=== PATIENT | male | born 1950 | race Caucasian/White ===

== ENCOUNTER 2017-06-19 01:55 | Emergency (ER) | payer OTHER ==
[~2017-06-19] VITALS: Ht 185.4 cm; Wt 105.0 kg
[2017-06-19 02:09] VITALS: BP 118/73; PULSE 48; RESP 16; TEMP 97.6; O2SAT 98
[2017-06-19] MEDS ORDERED: ATOR10TA15 PO (02:09)
[2017-06-19] MEDS ORDERED: ASPI1CHW4 CHEW (02:09)
[2017-06-19] MEDS ORDERED: METO25TA3 PO (02:09)
[2017-06-19] MEDS ORDERED: ENAL5TAB PO (02:09)
[2017-06-19] MEDS ORDERED: SODIUM CHLORIDE 0.9% FLUSH 10 ML FLUSH IVF PRN (02:45)
[2017-06-19] MEDS ORDERED: SODIUM CHLORID 0.9% 500 ML INJ 500 ML IV ONE (02:45)
[2017-06-19 02:47] LABS: AUTOMATED NEUTROPHIL # 4.3 TH/MM3 (1.8-7.7); BASOPHIL # 0.1 TH/MM3 (0-0.2); BASOPHIL % 0.7 % (0.0-2.0); EOSINOPHIL # 0.3 TH/MM3 (0-0.4); EOSINOPHIL % 3.6 % (0.0-4.0); HEMATOCRIT 42.6 % (39.0-51.0); HEMOGLOBIN 14.8 GM/DL (13.0-17.0); LYMPH % 35.3 % (9.0-44.0); LYMPHOCYTE # 2.9 TH/MM3 (1.0-4.8); MEAN CELL VOLUME 97.9 FL (80.0-100.0); MEAN CORPUSCULAR HEMOGLOBIN 34.1 PG (27.0-34.0); MEAN CORPUSCULAR HGB CONC 34.8 % (32.0-36.0); MEAN PLATELET VOLUME 10.6 FL (7.0-11.0); MONO % 8.5 % (0.0-8.0); MONOCYTE # 0.7 TH/MM3 (0-0.9); NEUT % 51.9 % (16.0-70.0); PLATELET COUNT 134 TH/MM3 (150-450); RED BLOOD COUNT 4.35 MIL/MM3 (4.50-5.90); RED CELL DISTRIBUTION WIDTH 12.6 % (11.6-17.2); WHITE BLOOD COUNT 8.2 TH/MM3 (4.0-11.0)
--- NOTE | 2017-06-19 02:57 | RADRPT ---
EXAM DATE/TIME: 06/19/2017 02:43 [facility] COMPARISON: No previous studies available for comparison. INDICATIONS : Trauma, fall. Syncopal episode. RADIATION DOSE: 66.34 CTDIvol (mGy) MEDICAL HISTORY : Hypertension. SURGICAL HISTORY : None. ENCOUNTER: Initial ACUITY: 1 day PAIN SCALE: 0/10 LOCATION: cranial TECHNIQUE: Multiple contiguous axial images were obtained of the head. Using automated exposure control and adj ustment of the mA and/or kV according to patient size, radiation dose was kept as low as reasonably a chievable to obtain optimal diagnostic quality images. DICOM format image data is available electro nically for review and comparison. FINDINGS: CEREBRUM: The ventricles are normal for age. No evidence of midline shift, mass lesion, hemorrhage or acute in farction. No extra-axial fluid collections are seen. POSTERIOR FOSSA: The cerebellum and brainstem are intact. The 4th ventricle is midline. The cerebellopontine angle i s unremarkable. EXTRACRANIAL: The visualized portion of the orbits is intact. Small retention cyst in the inferior aspect of the ma xillary antra SKULL: The calvaria is intact. No evidence of skull fracture. CONCLUSION: 1. Mild sinus disease in the inferior aspect of the right maxillary antra. 2. Otherwise negative. No acute intracranial process, trauma or fracture Patrice Rosas MD on June 19, 2017 at 2:55 Board Certified Radiologist. This report was verified electronically.
[2017-06-19 03:04] LABS: INTERNATIONAL NORMALIZED RATIO 1.1 RATIO
[2017-06-19 03:11] LABS: ALBUMIN 4.4 GM/DL (3.4-5.0); ALT (GPT) 32 U/L (12-78); AST (GOT) 29 U/L (15-37); BICARBONATE 24.9 MEQ/L (21.0-32.0); BLOOD UREA NITROGEN 29 MG/DL (7-18); CALCIUM 8.8 MG/DL (8.5-10.1); CHLORIDE 104 MEQ/L (98-107); CREATININE 1.47 MG/DL (0.60-1.30); GLOMERULAR FILTRATION RATE 48 ML/MIN (>89); GLUCOSE,RANDOM 100 MG/DL (74-106); SODIUM (NA) 139 MEQ/L (136-145)
--- NOTE | 2017-06-19 03:11 | RADRPT ---
EXAM DATE/TIME: 06/19/2017 02:43 [facility] COMPARISON: No previous studies available for comparison. INDICATIONS : Trauma, fall. RADIATION DOSE: 22.34 CTDIvol (mGy) MEDICAL HISTORY : Hypertension. SURGICAL HISTORY : None. ENCOUNTER: Initial ACUITY: 1 day PAIN SCALE: 0/10 LOCATION: neck TECHNIQUE: Volumetric scanning of the cervical spine was performed. Multiplanar reconstructions in the sagittal, coronal and oblique axial planes were performed. Using automated exposure control and adjustment o f the mA and/or kV according to patient size, radiation dose was kept as low as reasonably achievable to obtain optimal diagnostic quality images. DICOM format image data is available electronically f or review and comparison. FINDINGS: Sagittal and coronal reconstructions show mild multilevel degenerative disc disease, most severe at C 4-5 with loss of disc height and associated uncovertebral ridging. Minimal encroachment on the anteri or epidural space the spinal canal appears be adequate throughout. Vertebral body heights are maintai nathaniel without fracture or listhesis. C2-C3: The bony spinal canal is normal in size. No evidence of disc bulge or herniation. The neural forami na are bilaterally patent. C3-C4: The bony spinal canal is normal in size. No evidence of disc bulge or herniation. The neural forami na are bilaterally patent. C4-C5: Uncovertebral ridging encroaches on the intervertebral space of the left neural foramina. Spinal jessica l and neural foramina remain adequate, however. C5-C6: The bony spinal canal is normal in size. No evidence of disc bulge or herniation. The neural forami na are bilaterally patent. C6-C7: The bony spinal canal is normal in size. No evidence of disc bulge or herniation. The neural forami na are bilaterally patent. C7-T1: The bony spinal canal is normal in size. No evidence of disc bulge or herniation. The neural forami na are bilaterally patent. CONCLUSION: 1. Mild degenerative disc disease from C3-4 through C5-6 most severe at the C4-5 level. 2. Uncovertebral ridging at C4-5 encroaches on the intercostal space in the left neural foramina but the spinal canal and neural foramina appear to be adequate at this and all remaining levels. 3. No fracture or listhesis. Patrice Rosas MD on June 19, 2017 at 3:07 Board Certified Radiologist. This report was verified electronically.
[2017-06-19 03:15] LABS: ALKALINE PHOSPHATASE 61 U/L (45-117); TOTAL PROTEIN 7.4 GM/DL (6.4-8.2); TROPONIN I LESS THAN 0.02 NG/ML (0.02-0.05)
--- NOTE | 2017-06-19 03:17 | RADRPT ---
EXAM DATE/TIME: 06/19/2017 02:53 [facility] COMPARISON: No previous studies available for comparison. INDICATIONS : Palpitations MEDICAL HISTORY : Hypertension. SURGICAL HISTORY : None. ENCOUNTER: Initial ACUITY: 1 day PAIN SCORE: 0/10 LOCATION: Bilateral chest FINDINGS: A single view of the chest demonstrates the lungs to be symmetrically aerated without evidence of mas s, infiltrate or effusion. Heart size is borderline prominent a well compensated. Osseous structures are intact. CONCLUSION: 1. Heart size is borderline prominent but well compensated. 2. Lungs are clear Patrice Rosas MD on June 19, 2017 at 3:15 Board Certified Radiologist. This report was verified electronically.
[2017-06-19 04:17] VITALS: BP 126/60
--- NOTE | 2017-06-19 04:21 | PD ---
HPI Chief Complaint: Syncope/Near-Syncope Time Seen by Provider: 02:11 Travel History International Travel<30 days: No Contact w/Intl Traveler<30days: No Traveled to known affect area: No History of Present Illness HPI Patient is a 66-year-old male who comes in after he syncopized while visiting his stepson in the ICU. He reports being under a lot of stress as he recently moved down here and was supposed to get tomorrow until his steps and was in a bad accident and this had to be in the ICU here. He says he has not slept in a few days he is not eating and drinking well. He says that he was standing there and became dizzy and then all of a sudden passed out. Says he is feeling better now. He denies ever having any chest pain or shortness of breath. He says this is never happened before. He denies fever chills. Severity is mild to moderate. PFSH Past Medical History Atrial Fibrillation: Yes High Cholesterol: Yes Hypertension: Yes Tetanus Vaccination: Unknown Influenza Vaccination: No Social History Alcohol Use: Yes (WEEKLY) Tobacco Use: No Substance Use: No Allergies-Medications (Allergen,Severity, Reaction): Coded Allergies: No Known Allergies (Unverified , 06/19/17) Reported Meds & Prescriptions Reported Meds & Active Scripts Active Reported Aspirin 81 Low Dose (Aspirin) 81 Mg Chew 81 Mg CHEW DAILY Metoprolol Tartrate 25 Mg Tab Unknown Dose PO DAILY Atorvastatin (Atorvastatin Calcium) 10 Mg Tab 10 Mg PO HS Enalapril (Enalapril Maleate) 5 Mg Tab 5 Mg PO DAILY Review of Systems Except as stated in HPI: all other systems reviewed are Neg General / Constitutional: No: Fever, Chills Eyes: No: Blurred Vision HENT: No: Headaches Cardiovascular: No: Chest Pain or Discomfort, Palpitations Respiratory: No: Shortness of Breath Gastrointestinal: No: Nausea, Vomiting Skin: No Change in Pigmentation Neurologic: Positive: Syncope Physical Exam Narrative GENERAL: Awake and alert, no acute distress. SKIN: Focused skin assessment warm/dry. No wounds or signs of infection. HEAD: Atraumatic. Normocephalic. EYES: Pupils equal and round. No scleral icterus. Extraocular movements intact. ENT: Mucous membranes pink and moist. NECK: Trachea midline. No JVD. No cervical spine tenderness. CARDIOVASCULAR: Regular rate and rhythm. No murmur appreciated. RESPIRATORY: No accessory muscle use. Clear to auscultation. Breath sounds equal bilaterally. GASTROINTESTINAL: Abdomen soft, non-tender, nondistended. MUSCULOSKELETAL: No obvious deformities. No clubbing. No cyanosis. No edema. NEUROLOGICAL: Awake and alert. No obvious cranial nerve deficits. Motor grossly within normal limits. Normal speech. PSYCHIATRIC: Appropriate mood and affect; insight and judgment normal. Data Data Last Documented VS Vital Signs Date Time Temp Pulse Resp B/P (MAP) Pulse Ox O2 Delivery O2 Flow Rate FiO2 06/19/17 02:09 97.6 48 16 118/73 (88) 98 Room Air Orders Orders Complete Blood Count With Diff (06/19/17 02:31) Comprehensive Metabolic Panel (06/19/17 02:31) Troponin I (06/19/17 02:31) Act Partial Throm Time (Ptt) (06/19/17 02:31) Prothrombin Time / Inr (Pt) (06/19/17 02:31) Chest, Single Ap (06/19/17 02:31) Ct Brain W/O Iv Contrast(Rout) (06/19/17 02:31) Ct Cerv Spine W/O Contrast (06/19/17 02:31) Ecg Monitoring (06/19/17 02:31) Iv Access Insert/Monitor (06/19/17 02:31) Oximetry (06/19/17 02:31) Sodium Chloride 0.9% Flush (Ns Flush) (06/19/17 02:45) Sodium Chlorid 0.9% 500 Ml Inj (Ns 500 M (06/19/17 02:45) Electrocardiogram (06/19/17 ) Labs Laboratory Tests Test 06/19/17 02:00 White Blood Count 8.2 TH/MM3 Red Blood Count 4.35 MIL/MM3 Hemoglobin 14.8 GM/DL Hematocrit 42.6 % Mean Corpuscular Volume 97.9 FL Mean Corpuscular Hemoglobin 34.1 PG Mean Corpuscular Hemoglobin Concent 34.8 % Red Cell Distribution Width 12.6 % Platelet Count 134 TH/MM3 Mean Platelet Volume 10.6 FL Neutrophils (%) (Auto) 51.9 % Lymphocytes (%) (Auto) 35.3 % Monocytes (%) (Auto) 8.5 % Eosinophils (%) (Auto) 3.6 % Basophils (%) (Auto) 0.7 % Neutrophils # (Auto) 4.3 TH/MM3 Lymphocytes # (Auto) 2.9 TH/MM3 Monocytes # (Auto) 0.7 TH/MM3 Eosinophils # (Auto) 0.3 TH/MM3 Basophils # (Auto) 0.1 TH/MM3 CBC Comment DIFF FINAL Differential Comment Prothrombin Time 11.0 SEC Prothromb Time International Ratio 1.1 RATIO Activated Partial Thromboplast Time 23.1 SEC Blood Urea Nitrogen 29 MG/DL Creatinine 1.47 MG/DL Random Glucose 100 MG/DL Total Protein 7.4 GM/DL Albumin 4.4 GM/DL Calcium Level 8.8 MG/DL Alkaline Phosphatase 61 U/L Aspartate Amino Transf (AST/SGOT) 29 U/L Alanine Aminotransferase (ALT/SGPT) 32 U/L Total Bilirubin 1.0 MG/DL Sodium Level 139 MEQ/L Potassium Level 3.9 MEQ/L Chloride Level 104 MEQ/L Carbon Dioxide Level 24.9 MEQ/L Anion Gap 10 MEQ/L Estimat Glomerular Filtration Rate 48 ML/MIN Troponin I LESS THAN 0.02 NG/ML MDM Medical Decision Making Medical Screen Exam Complete: Yes Emergency Medical Condition: Yes Interpretation(s) ECG shows sinus rhythm at 61 with frequent PACs. Differential Diagnosis Syncope versus vasovagal episode versus dehydration Narrative Course Patient is a 66-year-old male comes in after syncopal episode. Exam shows no acute abnormalities. IV established, labs sent. Labs show no acute abnormalities. CT head and C-spine show no acute abnormalities. Last [address] 06/19/17230 Signed Impressions: Service Date/Time: Monday, June 19, 2017 02:43 - CONCLUSION: 1. Mild sinus disease in the inferior aspect of the right maxillary antra. 2. Otherwise negative. No acute intracranial process, trauma or fracture Patrice Rosas MD Chest X-Ray 06/19/17230 Signed Impressions: Service Date/Time: Monday, June 19, 2017 02:53 - CONCLUSION: 1. Heart size is borderline prominent but well compensated. 2. Lungs are clear Patrice Rosas MD Cervical Spine CT 06/19/17230 Signed Impressions: Service Date/Time: Monday, June 19, 2017 02:43 - CONCLUSION: 1. Mild degenerative disc disease from C3-4 through C5-6 most severe at the C4-5 level. 2. Uncovertebral ridging at C4-5 encroaches on the intercostal space in the left neural foramina but the spinal canal and neural foramina appear to be adequate at this and all remaining levels. 3. No fracture or listhesis. Patrice Rosas MD I explained to the patient that this is likely a vasovagal episode, however at the age of 66 I cannot be sure. I explained it could be due to a cardiac issue or a blood flow to the brain issue. He is offered admission, but declines at this time. He says he just wants to go home and get some sleep. He is advised to find a primary care doctor in follow-up. He is advised return anytime for any worsening symptoms. Diagnosis Primary Impression: Syncope Qualified Codes: R55 - Syncope and collapse Patient Instructions: General Instructions, Syncope (ED) Additional Instructions: Drink plenty of fluids. Follow up with a primary care physician. Return to the ED as needed for any worsening symptoms. Disposition: 01 DISCHARGE HOME Condition: Stable Elsi Gauthier MD Jun 19, 2017 04:21
--- NOTE | 2017-06-19 18:06 | EKG ---
Date Performed: 06/19/2017 Time Performed: 02:11:42 PTAGE: 66 years EKG: Sinus rhythm WITH FREQUENT PREMATURE JUNCTIONAL BEATS AND SOME PREMATURE ATRIAL BEATS SLIGHT INTRAVENTRICULAR CON DUCTION DELAY ABNORMAL RHYTHM ECG NO PREVIOUS TRACING DOCTOR: Fitz Marshall Interpretating Date/Time 06/19/2017 18:04:54
== END 2017-06-19 04:28 | disposition home or self-care (01) ==
LOC: NEPC 01:55
DX: R55 Syncope and collapse (principal); R42 Dizziness and giddiness; E78.00 Pure hypercholesterolemia, unspecified; I10 Essential (primary) hypertension; M50.31 Other cervical disc degeneration, high cervical region; M50.322 Other cervical disc degeneration at C5-C6 level; M50.321 Other cervical disc degeneration at C4-C5 level; R94.31 Abnormal electrocardiogram [ECG] [EKG]; I48.91 Unspecified atrial fibrillation
CPT/HCPCS: 70450; 71045; 72125; 80053; 84484; 85025; 85610; 85730; 93005; 99285; J7040